=== PATIENT | male | born 1940 | race Caucasian/White ===

== ENCOUNTER 2017-06-01 14:08 | Emergency (ER) | payer OTHER ==
--- NOTE | 2017-06-01 14:43 | EDPHY ---
H & P Stated Complaint: rt shoulder and neck pain after sleeping, lower abdominal pain x 6 months Time Seen by Provider: 06/01/17 14:32 HPI/ROS: CHIEF COMPLAINT: Right shoulder pain HISTORY OF PRESENT ILLNESS: The patient is a 77-year-old man who is here visiting who states that he slept on his shoulder wrong and is having muscular pain. It hurts when he raises his shoulder laterally and rotates it but does not hurt when he raises it anteriorly. No weakness or numbness. No neck pain. No headache. No chest pain. No shortness of breath. He also complains of mild constipation which she states he has had for 20 years. He states he has not had a bowel movement 5 days. No abdominal pain or tenderness. No urinary symptoms. REVIEW OF SYSTEMS: Constitutional: denies: chills, fever, recent illness, recent injury EENTM: denies: blurred vision, double vision, nose congestion Respiratory: denies: cough, shortness of breath Cardiac: denies: chest pain, irregular heart rate, lightheadedness, palpitations Gastrointestinal/Abdominal: denies: abdominal pain, diarrhea, nausea, vomiting, blood streaked stools Genitourinary: denies: dysuria, frequency, hematuria, pain Musculoskeletal: See HPI Skin: denies: lesions, rash, jaundice, bruising Neurological: denies: headache, numbness, paresthesia, tingling, dizziness, weakness Hematologic/Lymphatic: denies: blood clots, easy bleeding, easy bruising Immunologic/allergic: denies: HIV/AIDS, transplant EXAM: GENERAL: Well-appearing, overweight and in no acute distress. HEAD: Atraumatic, normocephalic. EYES: Pupils equal round and reactive to light, extraocular movements intact, sclera anicteric, conjunctiva are normal. ENT: TMs normal, nares patent, oropharynx clear without exudates. Moist mucous membranes. NECK: Normal range of motion, supple without lymphadenopathy or JVD. LUNGS: Breath sounds clear to auscultation bilaterally and equal. No wheezes rales or rhonchi. HEART: Regular rate and rhythm without murmurs, rubs or gallops. ABDOMEN: Soft, nontender, normoactive bowel sounds. No guarding, no rebound. No masses appreciated. BACK: No CVA tenderness, no spinal tenderness, step-offs or deformities EXTREMITIES: Right shoulder pain with movement, no tenderness. Mild spasming of the trapezius. No neck pain or tenderness Normal range of motion, no pitting or edema. No clubbing or cyanosis. NEUROLOGICAL: Cranial nerves II through XII grossly intact. Normal speech, normal gait. 5/5 strength, normal movement in all extremities, normal sensation PSYCH: Normal mood, normal affect. SKIN: Warm, dry, normal turgor, no visible rashes or lesions. Source: Patient Exam Limitations: No limitations - Personal History Current Tetanus/Diphtheria Vaccine: Yes - Medical/Surgical History Hx Asthma: No Hx Chronic Respiratory Disease: No Hx Diabetes: Yes Hx Cardiac Disease: Yes Hx Renal Disease: No Hx Cirrhosis: No Hx Alcoholism: No Hx HIV/AIDS: No Hx Splenectomy or Spleen Trauma: No Other PMH: HTN, DM TYPE 2, A FIB - Family History Significant Family History: No pertinent family hx - Social History Smoking Status: Former smoker Alcohol Use: Sober Drug Use: None Constitutional: Initial Vital Signs Temperature (C) 37.0 C 06/01/17 14:16 Heart Rate 64 06/01/17 14:16 Respiratory Rate 18 06/01/17 14:16 Blood Pressure 170/77 H 06/01/17 14:16 O2 Sat (%) 95 06/01/17 14:16 O2 Delivery Mode Room Air Allergies/Adverse Reactions: No Known Allergies Allergy (Unverified 06/01/17 14:20) Medical Decision Making - Diagnostics EKG Interpretation: An EKG obtained and was read and documented in trace view. Please see trace view for full reading and report. Sinus rhythm, no acute ischemic changes ED Course/Re-evaluation: The patient has symptoms that he is convinced are musculoskeletal. He is requesting ibuprofen. He denies chest pain neck pain or neurologic deficits. He also is requesting something for constipation. I convinced him to get an EKG but he declines any blood work or further workup. He does not think this is his heart. He is not concerned about any abdominal catastrophe. He is not worried about PE. He has no shortness of breath. He is not tachycardic or hypoxic. 3:10 p.m. we discussed the EKG results which are reassuring. The patient continues to decline further workup or testing is eager to go home. I gave him strict return precautions. Differential Diagnosis: Partial list of the Differential diagnosis considered include but were not limited to; constipation, the muscle strain the, arthritis and although unlikely based on the history and physical exam, I also considered fracture, acute coronary disease, PE, pneumonia, dissection, diverticulitis, ischemia. I discussed these differential diagnoses and the plan with the patient as well as the usual and expected course. The patient understands that the diagnosis is provisional and that in medicine we are not always correct and that further workup is often warranted. Usual and customary warnings were given. All of the patient's questions were answered. The patient was instructed to return to the emergency department should the symptoms at all worsen or return, otherwise to followup with the physician as we discussed. - Data Points Medications Given: Discontinued Medications Ibuprofen (Motrin) 600 mg PO EDNOW ONE Stop: 06/01/17 14:47 Last Admin: 06/01/17 14:50 Dose: 600 mg Departure - Departure Disposition: Home, Routine, Self-Care Clinical Impression: Shoulder pain, right Qualifiers: Chronicity: acute Qualified Code(s): M25.511 - Pain in right shoulder Constipation Qualifiers: Constipation type: unspecified constipation type Qualified Code(s): K59.00 - Constipation, unspecified Condition: Fair Instructions: Constipation (ED), Shoulder Pain (ED) Additional Instructions: Take MiraLax as we discussed. He may titrate to results. Taking cap full every couple of hours until you are satisfied and then decrease. Referrals: ROSY SOLIS [Other] - As per Instructions
[2017-06-01] MEDS ORDERED: IBUPROFEN 600 MG TAB PO ONE (14:46)
--- NOTE | 2017-06-01 14:56 | CPEKG ---
Heart Rate: 67 RR Interval: 896 P-R Interval: 216 QRSD Interval: 80 QT Interval: 392 QTC Interval: 414 P [place]: 9 QRS [place]: 37 T Wave [place]: 101 EKG Severity - BORDERLINE ECG - EKG Impression: SINUS RHYTHM EKG Impression: LOW VOLTAGE IN FRONTAL LEADS EKG Impression: BORDERLINE T WAVE ABNORMALITIES Electronically Signed By: Dov Valdez 01-Jun-2017 15:00:25
[2017-06-01 15:11] VITALS: BP 163/75; PULSE 68; RESP 20; TEMP 98.1; O2SAT 92
== END 2017-06-01 15:11 | disposition home or self-care (01) ==
DX: M25.511 Pain in right shoulder (principal); K59.00 Constipation, unspecified; I10 Essential (primary) hypertension; E11.9 Type 2 diabetes mellitus without complications; Z87.891 Personal history of nicotine dependence